=== PATIENT | female | born 1985 | race Asian ===

== ENCOUNTER 2018-07-24 08:15 | Observation (INO) | payer OTHER ==
[~2018-07-24] VITALS: Ht 158 cm; Wt 68.3 kg
[~2018-07-24 08:15] MED LIST: DSS100 PO; FERR1TAB45 PO; IBUP-1506 PO
[2018-07-24 08:45] VITALS: BP 113/67
== END 2018-07-24 10:50 | disposition home or self-care (01) ==
LOC: 4S 08:15
PROVIDERS: ADMIT Obstetrics & Gynecology; ATTEND Obstetrics & Gynecology
DX: Z34.83 Encounter for supervision of other normal pregnancy, third trimester (principal); Z3A.39 39 weeks gestation of pregnancy
CPT/HCPCS: 59025; 76815; G0378

== ENCOUNTER 2018-07-26 01:09 | Inpatient (IN) | payer OTHER ==
[~2018-07-26] VITALS: Ht 160 cm; Wt 69.4 kg
[2018-07-26 02:25] VITALS: BP 110/71
[2018-07-26] MEDS ORDERED: OXYTOCIN 30 UNITS/LACT RINGERS 500 ML IV ONE (03:54)
[2018-07-26] MEDS ORDERED: RINGERS SOLUTION,LACTATED 1,000 ML IV PRN (03:54)
[2018-07-26] MEDS ORDERED: LIDOCAINE HCL/PF 1% 30 ML VIAL INJ PRN (04:00)
[2018-07-26] MEDS ORDERED: METOCLOPRAMIDE HCL 5 MG/ML 2 ML VIAL IVP PRN (04:00)
[2018-07-26] MEDS ORDERED: CITRIC ACID/SODIUM CITRATE 30 ML SOLUTION UDCUP PO PRN (04:00)
[2018-07-26] MEDS ORDERED: FentaNYL CITRATE-PF 100 MCG/2 ML VIAL IVP PRN (04:00)
[2018-07-26] MEDS: RINGERS SOLUTION,LACTATED 1,000 ML IV SCH ×2 (04:11→08:44)
[2018-07-26] MEDS ORDERED: PRENATA PO (04:26)
[2018-07-26 04:40] LABS: BASOPHILS % (AUTO) 0.2 % (0.0-2.0); EOSINOPHILS % (AUTO) 0.6 % (1.0-6.0); HEMATOCRIT 36.3 % (36-46); HEMOGLOBIN 12.3 g/dL (12.0-16.0); LYMPHOCYTES # (AUTO) 1.8 K/uL (1.0-4.8); LYMPHOCYTES % (AUTO) 20.3 % (22.0-44.0); MEAN CORPUSCULAR HEMOGLOBIN 32.6 pg (26.0-34.0); MEAN CORPUSCULAR HGB CONC 33.9 G/dL (31.0-37.0); MEAN CORPUSCULAR VOLUME 96 fL (80-100); MONOCYTES # (AUTO) 0.6 K/uL (0.1-1.0); MONOCYTES % (AUTO) 7.1 % (2.0-9.0); NEUTROPHILS # (AUTO) 6.4 K/uL (1.8-7.7); NEUTROPHILS % (AUTO) 71.8 % (40.0-70.0); PLATELET COUNT (AUTO)-OB 107 K/uL (150-450); RED BLOOD CELL COUNT(AUTO) 3.78 MIL/uL (4.00-5.20); RED CELL DISTRIBUTION WIDTH 13.3 % (11.5-14.5)
[2018-07-26] MEDS ORDERED: ROPIVACAINE HCL/PF 0.2% 100 ML ED ONE (05:02)
[2018-07-26] MEDS ORDERED: DiphenhydrAMINE HCL 50 MG/ML VIAL IVP PRN (05:30)
[2018-07-26] MEDS ORDERED: ONDANSETRON HCL 4 MG/2 ML VIAL IVP PRN (05:30)
[2018-07-26] MEDS ORDERED: NALBUPHINE HCL 10 MG/ML VIAL IVP PRN (05:30)
[2018-07-26] MEDS ORDERED: ROPIVACAINE HCL/PF 0.2% 100 ML ED SCH (05:30)
[2018-07-26] MEDS ORDERED: OXYGEN THERAPY IH SCH (08:00)
[2018-07-26 12:04] LABS: BASOPHILS % (AUTO) 0.4 % (0.0-2.0); EOSINOPHILS % (AUTO) 0.3 % (1.0-6.0); HEMATOCRIT 35.3 % (36-46); HEMOGLOBIN 11.9 g/dL (12.0-16.0); LYMPHOCYTES # (AUTO) 1.4 K/uL (1.0-4.8); LYMPHOCYTES % (AUTO) 14.7 % (22.0-44.0); MEAN CORPUSCULAR HEMOGLOBIN 31.6 pg (26.0-34.0); MEAN CORPUSCULAR HGB CONC 33.7 G/dL (31.0-37.0); MEAN CORPUSCULAR VOLUME 94 fL (80-100); MONOCYTES # (AUTO) 0.6 K/uL (0.1-1.0); MONOCYTES % (AUTO) 5.6 % (2.0-9.0); NEUTROPHILS # (AUTO) 7.8 K/uL (1.8-7.7); PLATELET COUNT (AUTO)-OB 104 K/uL (150-450); RED BLOOD CELL COUNT(AUTO) 3.77 MIL/uL (4.00-5.20); RED CELL DISTRIBUTION WIDTH 13.2 % (11.5-14.5)
[2018-07-26] MEDS ORDERED: LANOLIN 7 GM OINTMENT TP PRN (14:15)
[2018-07-26] MEDS ORDERED: ACETAMINOPHEN/CODEINE 300-30 MG TABLET PO PRN ×2 (14:15)
[2018-07-26] MEDS ORDERED: BENZOCAINE 20%/MENTHOL 56 GM SPRAY CANISTER TP PRN (14:15)
[2018-07-26] MEDS ORDERED: MEASLES/MUMPS/RUBELLA VACCINE, LIVE 0.5 ML/VIAL SQ ONE (14:15)
[2018-07-26] MEDS: IBUPROFEN 600 MG TABLET PO PRN ×2 (15:27→21:06)
[2018-07-26] MEDS: GLYCERIN/WITCH HAZEL LEAF 40 PADS JAR TP PRN (15:28)
[2018-07-26] MEDS: MAGNESIUM HYDROXIDE SUSPENSION 30 ML UDCUP PO SCH (21:06)
[2018-07-27] MEDS: MAGNESIUM HYDROXIDE SUSPENSION 30 ML UDCUP PO SCH (09:08)
[2018-07-27] MEDS: IBUPROFEN 600 MG TABLET PO PRN (09:09)
[2018-07-27] MEDS ORDERED: SODIUM CHLORIDE 0.9% 500 ML IV SCH (10:45)
[2018-07-27] MEDS ORDERED: BUTALBITAL/ACETAMINOPHEN/CAFFEINE 50-325-40 MG TABLET PO PRN (11:00)
[2018-07-27] MEDS ORDERED: SODIUM CHLORIDE 0.9% 1,000 ML IV SCH (11:15)
[2018-07-27] MEDS ORDERED: IBUP-2070 PO (12:58)
[2018-07-27] MEDS ORDERED: DSS100 PO (12:58)
[2018-07-27] MEDS ORDERED: [UNRECOGNIZED DRUG - CODE] PO (13:00)
[2018-07-27] MEDS: GLYCERIN/WITCH HAZEL LEAF 40 PADS JAR TP PRN (13:11)
== END 2018-07-27 13:30 | disposition home or self-care (01) | DRG 775 ==
LOC: OBSVTOIN 01:09 → 4S 01:09
PROVIDERS: ADMIT Obstetrics & Gynecology; ATTEND Obstetrics & Gynecology
PROC: 10E0XZZ Delivery of Products of Conception, External Approach (ICD-10-PCS; principal; 2018-07-26)
PROC: 0KQM0ZZ Repair Perineum Muscle, Open Approach (ICD-10-PCS; 2018-07-26)
PROC: 10907ZC Drainage of Amniotic Fluid, Therapeutic from Products of Conception, Via Natural or Artificial Opening (ICD-10-PCS; 2018-07-26)
PROC: 3E0S3BZ Introduction of Anesthetic Agent into Epidural Space, Percutaneous Approach (ICD-10-PCS; 2018-07-26)
PROC: 00HU33Z Insertion of Infusion Device into Spinal Canal, Percutaneous Approach (ICD-10-PCS; 2018-07-26)
DX: O77.0 Labor and delivery complicated by meconium in amniotic fluid (principal); O70.1 Second degree perineal laceration during delivery; Z37.0 Single live birth; Z3A.39 39 weeks gestation of pregnancy; Z91.013 Allergy to seafood
CPT/HCPCS: J2590; J2795; J3490; J7030; J7040; J7120